=== PATIENT | male | born 1970 | race Hispanic/Latino ===

== ENCOUNTER → 2016-09-28 | Outpatient (REF) | payer OTHER ==
[2016-09-28 13:03] LABS: MEAN CORPUSCULAR HEMOGLOBIN 29.5 pg (27.0-33.0); MEAN CORPUSCULAR HGB CONC 34.4 g/dl (32.0-36.5); MEAN CORPUSCULAR VOLUME 85.7 fl (80.0-96.0); RED CELL DISTRIBUTION WIDTH 12.8 % (11.5-14.5); VITAMIN B12 LEVEL 474 PG/ML (247-911); WHITE BLOOD COUNT 5.9 K/mm3 (4.0-10.0)
[2016-09-28 13:04] LABS: ALBUMIN 4.1 GM/DL (3.2-5.2); ALBUMIN/GLOBULIN RATIO 1.32 (1.00-1.93); ALKALINE PHOSPHATASE 88 U/L (45-117); ALT/SGPT 43 U/L (12-78); ANION GAP 9 MEQ/L (8-16); AST/SGOT 14 U/L (15-37); BILIRUBIN,TOTAL 0.4 MG/DL (0.2-1.0); BLOOD UREA NITROGEN 14 MG/DL (7-18); CALCIUM LEVEL 8.9 MG/DL (8.5-10.1); CARBON DIOXIDE LEVEL 27 MEQ/L (21-32); CHLORIDE LEVEL 108 MEQ/L (98-107); CHOLESTEROL LEVEL 181 MG/DL (<200); CREATININE FOR GFR 1.09 MG/DL (0.70-1.30); FOLATE 11.1 NG/ML (>5.4); FREE T4 1.24 NG/DL (0.76-1.46); GLOMERULAR FILTRATION RATE > 60.0 (>60); GLUCOSE, FASTING 98 MG/DL (70-105); POTASSIUM SERUM 4.2 MEQ/L (3.5-5.1); SODIUM LEVEL 144 MEQ/L (136-145); TOTAL PROTEIN 7.2 GM/DL (6.4-8.2); TRIGLYCERIDES LEVEL 187 MG/DL (<150)
== END ==
LOC: M SFHCADAM 10:06
PROVIDERS: ATTEND Family Medicine
DX: E03.9 Hypothyroidism, unspecified (principal); F42.9 Obsessive-compulsive disorder, unspecified; E74.9 Disorder of carbohydrate metabolism, unspecified; N52.9 Male erectile dysfunction, unspecified; E29.1 Testicular hypofunction; G47.33 Obstructive sleep apnea (adult) (pediatric); F32.9 Major depressive disorder, single episode, unspecified

== ENCOUNTER → 2016-10-24 | Outpatient (CLI) | payer OTHER | LOC: M WUC 14:25 | PROVIDERS: ATTEND Physician Assistant | DX: M10.9 Gout, unspecified (principal) ==

== ENCOUNTER → 2016-11-05 | Outpatient (CLI) | payer OTHER | LOC: M LAB 07:44 | PROVIDERS: ATTEND Family Medicine | DX: Z12.5 Encounter for screening for malignant neoplasm of prostate (principal); E29.1 Testicular hypofunction | CPT/HCPCS: 36415; 84403; G0103 ==

== ENCOUNTER → 2016-12-30 | Outpatient (CLI) | payer OTHER ==
[2016-12-30 07:51] LABS: MEAN CORPUSCULAR HEMOGLOBIN 28.4 pg (27.0-33.0); MEAN CORPUSCULAR HGB CONC 32.9 g/dl (32.0-36.5); MEAN CORPUSCULAR VOLUME 86.3 fl (80.0-96.0); RED CELL DISTRIBUTION WIDTH 13.4 % (11.5-14.5); WHITE BLOOD COUNT 6.3 K/mm3 (4.0-10.0)
[2016-12-30 08:12] LABS: ALBUMIN 3.7 GM/DL (3.2-5.2); ALBUMIN/GLOBULIN RATIO 1.28 (1.00-1.93); ALKALINE PHOSPHATASE 76 U/L (45-117); ALT/SGPT 43 U/L (12-78); ANION GAP 6 MEQ/L (8-16); AST/SGOT 14 U/L (15-37); BILIRUBIN,TOTAL 0.4 MG/DL (0.2-1.0); BLOOD UREA NITROGEN 12 MG/DL (7-18); CALCIUM LEVEL 8.1 MG/DL (8.5-10.1); CARBON DIOXIDE LEVEL 27 MEQ/L (21-32); CHLORIDE LEVEL 109 MEQ/L (98-107); GLOMERULAR FILTRATION RATE > 60.0 (>60); GLUCOSE, FASTING 120 MG/DL (70-105); SODIUM LEVEL 142 MEQ/L (136-145); TOTAL PROTEIN 6.6 GM/DL (6.4-8.2)
== END ==
LOC: M LAB 07:08
PROVIDERS: ATTEND Family Medicine
DX: E29.1 Testicular hypofunction (principal); E55.9 Vitamin D deficiency, unspecified

== ENCOUNTER 2017-06-13 18:00 | Emergency (ER) | payer OTHER ==
[~2017-06-13] VITALS: Ht 188 cm; Wt 136.4 kg
[2017-06-13] MEDS ORDERED: LEVO200T4 (18:13)
[2017-06-13] MEDS ORDERED: VITA1CAP40 (18:13)
[2017-06-13] MEDS ORDERED: CIAL5TAB (18:13)
[2017-06-13] MEDS ORDERED: BUPR200T (18:13)
[2017-06-13] MEDS ORDERED: ANDR1.62 (18:13)
--- NOTE | 2017-06-13 21:10 | REPUSA ---
CT of the orbits without contrast Clinical history: Pain, injury. Technique: Multiple axial CT images were obtained through the orbits and paranasal sinuses utilizing 3 mm axial slices without administration of contrast. Coronal and sagittal reconstructions were also obtained. Findings: The visualized paranasal sinuses are clear. The osteomeatal complexes are patent bilaterall y. The nasal septum is midline. The visualized mastoid air cells are clear. The osseous structures do not demonstrate any acute abnormalities. The superficial soft tissues are within normal limits. Impression: Unremarkable CT examination of the orbits.
--- NOTE | 2017-06-13 21:10 | REPUSA ---
CT of the head Clinical history: trauma. Technique: Multiple axial CT images were obtained through the head without administration of contrast . Findings: The ventricles and sulci are symmetric bilaterally. There is no evidence of acute hemorrhag e or infarct. There is no midline shift, mass effect, or extra-axial fluid collection. The osseous st ructures are unremarkable. The visualized paranasal sinuses and mastoid air cells are clear. Impression: Negative study.
[2017-06-13 21:37] VITALS: BP 157/100
== END 2017-06-13 21:39 | disposition home or self-care (01) ==
LOC: M ED 18:00
DX: S80.01XA Contusion of right knee, initial encounter (principal); S05.11XA Contusion of eyeball and orbital tissues, right eye, initial encounter; S43.401A Unspecified sprain of right shoulder joint, initial encounter; W01.198A Fall on same level from slipping, tripping and stumbling with subsequent striking against other object, initial encounter; Y92.019 Unspecified place in single-family (private) house as the place of occurrence of the external cause; Y93.89 Activity, other specified; Y99.8 Other external cause status; G47.30 Sleep apnea, unspecified; E03.9 Hypothyroidism, unspecified; Z79.899 Other long term (current) drug therapy

== ENCOUNTER 2017-08-09 15:04 | Outpatient (RCR) | payer OTHER ==
[~2017-08-09 15:04] MED LIST: ANDR1.62; BUPR200T; CIAL5TAB; LEVO200T4; VITA1CAP40
== END 2017-08-11 ==
LOC: M PT 15:04
PROVIDERS: ATTEND Physician Assistant Medical
DX: Z51.89 Encounter for other specified aftercare (principal); R41.3 Other amnesia; R47.81 Slurred speech; R47.89 Other speech disturbances; M54.2 Cervicalgia
CPT/HCPCS: 92507; 96125; 97010; 97110; 97140; 97162; 97165; G9162; G9163

== ENCOUNTER → 2017-08-27 | Outpatient (CLI) | payer OTHER ==
[2017-08-27 08:53] LABS: MEAN CORPUSCULAR HGB CONC 33.2 g/dl (32.0-36.5); MEAN CORPUSCULAR VOLUME 84.4 fl (80.0-96.0); PLATELET COUNT, AUTOMATED 165 10^3/uL (150-450); RED CELL DISTRIBUTION WIDTH 13.1 % (11.5-14.5); WHITE BLOOD COUNT 6.1 10^3/uL (4.0-10.0)
[2017-08-27 09:41] LABS: ALBUMIN/GLOBULIN RATIO 1.25 (1.00-1.93); ALKALINE PHOSPHATASE 75 U/L (45-117); ALT/SGPT 39 U/L (12-78); ANION GAP 5 MEQ/L (8-16); AST/SGOT 14 U/L (7-37); BILIRUBIN,TOTAL 0.5 MG/DL (0.2-1.0); BLOOD UREA NITROGEN 13 MG/DL (7-18); CALCIUM LEVEL 8.8 MG/DL (8.5-10.1); CARBON DIOXIDE LEVEL 27 MEQ/L (21-32); CHLORIDE LEVEL 109 MEQ/L (98-107); CHOLESTEROL LEVEL 155 MG/DL (<200); FREE T4 1.29 NG/DL (0.76-1.46); GLOMERULAR FILTRATION RATE > 60.0 (>60); GLUCOSE, FASTING 103 MG/DL (70-105); POTASSIUM SERUM 4.8 MEQ/L (3.5-5.1); SODIUM LEVEL 141 MEQ/L (136-145); TOTAL PROTEIN 7.2 GM/DL (6.4-8.2); TRIGLYCERIDES LEVEL 107 MG/DL (<150)
== END ==
LOC: M LAB 08:11
PROVIDERS: ATTEND Family Medicine
DX: E29.1 Testicular hypofunction (principal)

== ENCOUNTER → 2018-02-27 | Outpatient (CLI) | payer OTHER ==
[2018-02-27 07:45] LABS: HEMATOCRIT 44.2 % (42.0-52.0); HEMOGLOBIN 15.1 g/dl (13.5-17.5); MEAN CORPUSCULAR HEMOGLOBIN 28.9 pg (27.0-33.0); MEAN CORPUSCULAR HGB CONC 34.2 g/dl (32.0-36.5); MEAN CORPUSCULAR VOLUME 84.7 fl (80.0-96.0); PLATELET COUNT, AUTOMATED 160 10^3/uL (150-450); RED BLOOD COUNT 5.22 10^6/uL (4.30-6.10); RED CELL DISTRIBUTION WIDTH 12.6 % (11.5-14.5); WHITE BLOOD COUNT 6.1 10^3/uL (4.0-10.0)
[2018-02-27 08:24] LABS: ALBUMIN 3.7 GM/DL (3.2-5.2); ALBUMIN/GLOBULIN RATIO 1.16 (1.00-1.93); ALKALINE PHOSPHATASE 75 U/L (45-117); ALT/SGPT 34 U/L (12-78); ANION GAP 8 MEQ/L (8-16); AST/SGOT 14 U/L (7-37); BILIRUBIN,TOTAL 0.4 MG/DL (0.2-1.0); BLOOD UREA NITROGEN 20 MG/DL (7-18); CALCIUM LEVEL 8.4 MG/DL (8.5-10.1); CARBON DIOXIDE LEVEL 24 MEQ/L (21-32); CHLORIDE LEVEL 110 MEQ/L (98-107); CHOLESTEROL LEVEL 140 MG/DL (<200); CHOLESTEROL RISK RATIO 3.684 (<5); CREATININE FOR GFR 1.05 MG/DL (0.70-1.30); GLOMERULAR FILTRATION RATE > 60.0 (>60); GLUCOSE, FASTING 102 MG/DL (70-100); HDL CHOLESTEROL 38 MG/DL (>40); NON-HDL-C 102 MG/DL; POTASSIUM SERUM 4.3 MEQ/L (3.5-5.1); SODIUM LEVEL 142 MEQ/L (136-145); TOTAL PROTEIN 6.9 GM/DL (6.4-8.2); TRIGLYCERIDES LEVEL 100 MG/DL (<150)
[2018-02-27 09:54] LABS: TESTOSTERONE 362 NG/DL (241-827)
[2018-02-27 11:31] LABS: ESTIMATED AVERAGE GLUCOSE 128 MG/DL (60-110); HEMOGLOBIN A1c 6.1 %
== END ==
LOC: M LAB 07:10
DX: G47.33 Obstructive sleep apnea (adult) (pediatric) (principal); E74.9 Disorder of carbohydrate metabolism, unspecified; I10 Essential (primary) hypertension; E29.1 Testicular hypofunction; Z12.5 Encounter for screening for malignant neoplasm of prostate
CPT/HCPCS: 84403

== ENCOUNTER → 2018-06-07 | Outpatient (CLI) | payer OTHER | LOC: M RAD 14:56 | DX: N43.3 Hydrocele, unspecified (principal); N50.3 Cyst of epididymis; N50.819 Testicular pain, unspecified | CPT/HCPCS: 76870 ==

== ENCOUNTER 2018-06-15 13:14 | Emergency (ER) | payer OTHER ==
[2018-06-15 14:21] LABS: BASO % 0.5 % (0.0-1.0); EOS # 0.1 10^3/uL (0.0-0.50); EOS % 1.4 % (0.0-3.0); HEMATOCRIT 50.2 % (42.0-52.0); HEMOGLOBIN 16.9 g/dl (13.5-17.5); IMMATURE GRANULOCYTE % 0.5 % (0-3.0); LYMPH # 1.8 10^3/uL (1.5-4.5); LYMPH % 21.9 % (24.0-44.0); MEAN CORPUSCULAR HEMOGLOBIN 28.6 pg (27.0-33.0); MEAN CORPUSCULAR HGB CONC 33.7 g/dl (32.0-36.5); MEAN CORPUSCULAR VOLUME 85.1 fl (80.0-96.0); MONO # 0.6 10^3/uL (0.0-0.8); NEUTROPHILS # 5.8 10^3/uL (1.8-7.7); NEUTROPHILS % 68.7 % (36.0-66.0); PLATELET COUNT, AUTOMATED 172 10^3/uL (150-450); WHITE BLOOD COUNT 8.4 10^3/uL (4.0-10.0)
[2018-06-15 14:35] LABS: ALBUMIN 4.5 GM/DL (3.2-5.2); ALBUMIN/GLOBULIN RATIO 1.32 (1.00-1.93); ALKALINE PHOSPHATASE 67 U/L (45-117); ALT/SGPT 46 U/L (12-78); ANION GAP 8 MEQ/L (8-16); AST/SGOT 17 U/L (7-37); BILIRUBIN,DIRECT 0.2 MG/DL (0.0-0.2); BILIRUBIN,TOTAL 0.6 MG/DL (0.2-1.0); BLOOD UREA NITROGEN 19 MG/DL (7-18); CALCIUM LEVEL 9.5 MG/DL (8.5-10.1); CARBON DIOXIDE LEVEL 29 MEQ/L (21-32); CHLORIDE LEVEL 106 MEQ/L (98-107); CREATININE FOR GFR 1.32 MG/DL (0.70-1.30); GLOMERULAR FILTRATION RATE > 60.0 (>60); GLUCOSE, FASTING 81 MG/DL (70-100); LIPASE 190 U/L (73-393); POTASSIUM SERUM 4.4 MEQ/L (3.5-5.1); SODIUM LEVEL 143 MEQ/L (136-145); TOTAL PROTEIN 7.9 GM/DL (6.4-8.2)
[2018-06-15] MEDS ORDERED: ISOVUE-370 76% 100ML VIAL (Q9967) As Ordered (14:47)
== END 2018-06-15 16:04 | disposition home or self-care (01) ==
LOC: M ED 13:14
DX: K42.9 Umbilical hernia without obstruction or gangrene (principal); I10 Essential (primary) hypertension; F33.9 Major depressive disorder, recurrent, unspecified; F42.9 Obsessive-compulsive disorder, unspecified; Z79.899 Other long term (current) drug therapy
CPT/HCPCS: Q9967

== ENCOUNTER → 2018-08-07 | Outpatient (CLI) | payer OTHER | LOC: M EKG 15:31 | DX: G47.30 Sleep apnea, unspecified (principal) | CPT/HCPCS: 93005 ==

== ENCOUNTER 2018-08-11 06:07 | Day surgery (SDC) | payer OTHER ==
[2018-08-11] MEDS: HEPARIN SOD (PORCINE) 5000 UNITS/ML VIAL SQ (06:00)
[~2018-08-11 06:07] MED LIST changes: -ANDR1.62; -BUPR200T; -CIAL5TAB; -LEVO200T4; +LR 1,000 ML IV; -VITA1CAP40
[2018-08-11] MEDS ORDERED: PROPOFOL 200 MG/20 ML VIAL As Ordered (07:14)
[2018-08-11] MEDS ORDERED: LIDOCAINE 2% INJ 100 MG/5 ML SDV (FOR ANES.) As Ordered (07:14)
[2018-08-11] MEDS ORDERED: dexameTHASONE 4 MG/ML 1ML VIAL (J1100) As Ordered (07:14)
[2018-08-11] MEDS ORDERED: ROCURONIUM BROMIDE 50 MG/5 ML VIAL As Ordered (07:14)
[2018-08-11] MEDS ORDERED: ONDANSETRON 4MG/2ML VIAL (J2405) As Ordered ×2 (07:14→08:50)
[2018-08-11] MEDS ORDERED: fentaNYL 250 MCG/5 ML INJECTION (J3010) As Ordered (07:16)
[2018-08-11] MEDS ORDERED: MIDAZOLAM INJ 2 MG/2 ML VIAL (J2250) As Ordered (07:17)
[2018-08-11] MEDS ORDERED: PHENYLephrine HCL 500 MCG/5 ML (100MCG/ML) SYRINGE (J2370) As Ordered (08:11)
[2018-08-11] MEDS ORDERED: ePHEDrine SULFATE 25 MG/5 ML(5MG/ML) SYRINGE As Ordered (08:11)
[2018-08-11] MEDS ORDERED: NEOSTIGMINE 10 MG/10 ML VIAL (J2710) As Ordered (08:29)
[2018-08-11] MEDS ORDERED: GLYCOPYRROLATE INJ 0.2 MG/ML 2 ML VIAL As Ordered (08:29)
[2018-08-11] MEDS ORDERED: HYDROmorphone HCL 2 MG/ML 1ML VIAL (J1170) As Ordered (08:29)
[2018-08-11] MEDS: BUPIVACAINE HCL 0.25% 30 ML VIAL As Ordered (09:00)
[2018-08-11] MEDS: LIDOCAINE 1% SDV INJ 30 ML VIAL As Ordered (09:00)
[2018-08-11] MEDS: LR 1,000 ML IV (09:12)
[2018-08-11] MEDS ORDERED: METOCLOPRAMIDE INJ 10MG/2ML VIAL (J2765) IV (09:30)
[2018-08-11] MEDS: MEPERIDINE INJ 25 MG/ML VIAL (J2175) IV ×2 (09:30→09:35)
[2018-08-11] MEDS ORDERED: NORCO, ANEXSIA 5/325MG TABLET (HYDROcodone/ACETAMINOPHEN) PO (09:30)
[2018-08-11] MEDS ORDERED: KETOROLAC 30 MG/ML VIAL (J1885) IV (09:30)
[2018-08-11] MEDS: PERCOCET 5MG/325MG TAB PO ×2 (09:31→10:01)
[2018-08-11] MEDS: KETOROLAC 30 MG/ML VIAL (J1885) IV (09:32)
[2018-08-11] MEDS: ONDANSETRON 4MG/2ML VIAL (J2405) IV (09:33)
[2018-08-11] MEDS: fentaNYL 100 MCG/2 ML INJECTION (J3010) IV ×4 (10:00→10:15)
[2018-08-11] MEDS: NORCO, ANEXSIA 5/325MG TABLET (HYDROcodone/ACETAMINOPHEN) PO (14:06)
== END 2018-08-11 14:35 | disposition home or self-care (01) ==
LOC: M SDC 06:07
DX: K42.9 Umbilical hernia without obstruction or gangrene (principal); I10 Essential (primary) hypertension; E03.9 Hypothyroidism, unspecified; G47.30 Sleep apnea, unspecified; Z79.899 Other long term (current) drug therapy
CPT/HCPCS: 49652

== ENCOUNTER → 2018-09-30 | Outpatient (CLI) | payer OTHER ==
[~2018-09-30] MED LIST changes: +ANDR1.62 TOP; +BUPR200T PO; +CIAL5TAB PO; +CIPR500T3; +IBUP200C25 PO; +LEVO200T4 PO; +LISI10TA4 PO; -LR 1,000 ML IV; +VITA50005 PO; +VITATAB11 PO
[2018-09-30 09:55] LABS: HEMATOCRIT 48.7 % (42.0-52.0); HEMOGLOBIN 16.5 g/dl (13.5-17.5); MEAN CORPUSCULAR HGB CONC 33.9 g/dl (32.0-36.5); MEAN CORPUSCULAR VOLUME 85.7 fl (80.0-96.0); PLATELET COUNT, AUTOMATED 168 10^3/uL (150-450); RED BLOOD COUNT 5.68 10^6/uL (4.30-6.10); WHITE BLOOD COUNT 5.9 10^3/uL (4.0-10.0)
[2018-09-30 10:30] LABS: ALBUMIN 4.2 GM/DL (3.2-5.2); ALT/SGPT 38 U/L (12-78); BILIRUBIN,TOTAL 0.6 MG/DL (0.2-1.0); BLOOD UREA NITROGEN 15 MG/DL (7-18); CALCIUM LEVEL 8.7 MG/DL (8.5-10.1); CARBON DIOXIDE LEVEL 27 MEQ/L (21-32); CHLORIDE LEVEL 106 MEQ/L (98-107); CREATININE FOR GFR 1.14 MG/DL (0.70-1.30); FREE T4 1.49 NG/DL (0.76-1.46); GLOMERULAR FILTRATION RATE > 60.0 (>60); GLUCOSE, FASTING 105 MG/DL (70-100); POTASSIUM SERUM 4.6 MEQ/L (3.5-5.1); SODIUM LEVEL 139 MEQ/L (136-145); THYROID STIMULATING HORMONE 0.988 uIU/ML (0.358-3.740); TOTAL PROTEIN 7.3 GM/DL (6.4-8.2)
[2018-10-02 11:23] LABS: TESTOSTERONE 451 NG/DL (241-827); TOTAL 25(OH) VITAMIN D 37.1 NG/ML (30.0-100.0)
== END ==
LOC: M LAB 09:00
PROVIDERS: ATTEND Family Medicine
DX: E03.9 Hypothyroidism, unspecified (principal); E55.9 Vitamin D deficiency, unspecified; I10 Essential (primary) hypertension; F32.9 Major depressive disorder, single episode, unspecified; E29.1 Testicular hypofunction

== ENCOUNTER → 2019-04-26 | Outpatient (CLI) | payer OTHER ==
[2019-04-26 11:22] LABS: BLOOD UREA NITROGEN 14 MG/DL (7-18); CREATININE FOR GFR 1.01 MG/DL (0.70-1.30); GLOMERULAR FILTRATION RATE > 60.0 (>60); GLUCOSE, FASTING 110 MG/DL (70-100); SODIUM LEVEL 142 MEQ/L (136-145)
[2019-04-26 11:23] LABS: ALT/SGPT 35 U/L (12-78); BILIRUBIN,TOTAL 0.3 MG/DL (0.2-1.0); CALCIUM LEVEL 8.2 MG/DL (8.5-10.1); CARBON DIOXIDE LEVEL 26 MEQ/L (21-32); CHLORIDE LEVEL 109 MEQ/L (98-107); CHOLESTEROL LEVEL 150 MG/DL (<200); HDL CHOLESTEROL 40 MG/DL (>40); NON-HDL-C 110 MG/DL; POTASSIUM SERUM 4.6 MEQ/L (3.5-5.1); TRIGLYCERIDES LEVEL 115 MG/DL (<150)
[2019-04-26 11:24] LABS: ALBUMIN 3.8 GM/DL (3.2-5.2); FREE T4 1.06 NG/DL (0.76-1.46); TOTAL PROTEIN 6.6 GM/DL (6.4-8.2)
[2019-04-26 12:24] LABS: TESTOSTERONE 460 NG/DL (241-827)
== END ==
LOC: M LAB 07:23
PROVIDERS: ATTEND Family Medicine
DX: E03.9 Hypothyroidism, unspecified (principal)

== ENCOUNTER → 2019-07-20 | Outpatient (CLI) | payer OTHER ==
--- NOTE | 2019-07-20 12:09 | REP ---
STERNUM SERIES: Two views. HISTORY: [place] a bump in the manubrial area of the sternum. FINDINGS: There are large osteophytes extending anteriorly from the manubrial sternal articulation visible on lateral radiograph. These measure approximately 14 mm in anteroposterior span. No bony destructive lesion is seen. No fracture is noted. Costal cartilage calcification is visible. IMPRESSION: Fairly prominent spurs at the manubrial sternal articulation anteriorly. Electronically Signed by Josh Méndez MD 07/20/2019 01:54 P
== END ==
LOC: M ADAMS 08:49
PROVIDERS: ATTEND Physician Assistant
DX: G47.33 Obstructive sleep apnea (adult) (pediatric) (principal)

== ENCOUNTER → 2019-07-20 | Outpatient (REF) | payer OTHER ==
[2019-07-20 14:05] LABS: BASO % 0.7 % (0.0-1.0); EOS # 0.2 10^3/uL (0.0-0.5); EOS % 2.6 % (0.0-3.0); HEMOGLOBIN 15.6 g/dl (13.5-17.5); LYMPH # 1.5 10^3/uL (1.5-5.0); LYMPH % 26.9 % (24.0-44.0); MEAN CORPUSCULAR HEMOGLOBIN 28.5 pg (27.0-33.0); MEAN CORPUSCULAR HGB CONC 32.5 g/dl (32.0-36.5); MEAN CORPUSCULAR VOLUME 87.6 fl (80.0-96.0); MONO # 0.4 10^3/uL (0.0-0.8); MONO % 7.7 % (0.0-5.0); NEUTROPHILS # 3.5 10^3/uL (1.5-8.5); NEUTROPHILS % 61.6 % (36.0-66.0); PLATELET COUNT, AUTOMATED 163 10^3/uL (150-450); RED BLOOD COUNT 5.48 10^6/uL (4.30-6.10); WHITE BLOOD COUNT 5.7 10^3/uL (4.0-10.0)
[2019-07-20 14:35] LABS: ALBUMIN 4.1 GM/DL (3.2-5.2); ALT/SGPT 39 U/L (12-78); BILIRUBIN,TOTAL 0.7 MG/DL (0.2-1.0); BLOOD UREA NITROGEN 13 MG/DL (7-18); CALCIUM LEVEL 8.7 MG/DL (8.5-10.1); CARBON DIOXIDE LEVEL 28 MEQ/L (21-32); CHLORIDE LEVEL 108 MEQ/L (98-107); CREATININE FOR GFR 1.11 MG/DL (0.70-1.30); FOLATE 14.2 NG/ML; FREE T4 1.38 NG/DL (0.76-1.46); GLOMERULAR FILTRATION RATE > 60.0 (>60); GLUCOSE, FASTING 98 MG/DL (70-100); POTASSIUM SERUM 4.3 MEQ/L (3.5-5.1); SODIUM LEVEL 142 MEQ/L (136-145); THYROID STIMULATING HORMONE 0.842 uIU/ML (0.358-3.740); TOTAL PROTEIN 7.2 GM/DL (6.4-8.2); VITAMIN B12 LEVEL 394 PG/ML
[2019-07-22 00:06] LABS: Lyme Disease IgG/IgM Antibodie <0.91 ISR (0.00-0.90); Lyme Disease IgM Ab Quantitati <0.80 index (0.00-0.79)
== END ==
LOC: M SFHCADAM 08:33
PROVIDERS: ATTEND Physician Assistant
DX: R42 Dizziness and giddiness (principal); M95.4 Acquired deformity of chest and rib; Z87.828 Personal history of other (healed) physical injury and trauma; I10 Essential (primary) hypertension

== ENCOUNTER → 2019-08-01 | Outpatient (CLI) | payer OTHER ==
--- NOTE | 2019-08-01 17:50 | REP ---
ULTRASOUND ANGIO CHEST WALL: Real-time sonographic evaluation of the anterior chest wall was performed in the midline at the site of a palpable abnormality. At the mid sternal level, at the site of the palpable lump. There is a heterogenous hypoechoic area which appears solid. There is increased echogenicity in its center. It measures 1.1 x 1.2 x 0.8 cm. Etiology is uncertain. I suspect this is related to the sternum. Further evaluation may be made with CT with and without IV contrast. Electronically Signed by Negro Nathan MD 08/02/2019 11:28 A
== END ==
LOC: M RAD 16:17
PROVIDERS: ATTEND Physician Assistant
DX: M95.4 Acquired deformity of chest and rib (principal)

== ENCOUNTER → 2019-08-15 | Outpatient (CLI) | payer OTHER ==
[~2019-08-15] MED LIST changes: +ISOVUE-370 76% 100ML VIAL (Q9967) As Ordered ONE
--- NOTE | 2019-08-15 09:17 | REP ---
Clinical: Sternal deformity. Technique: Axial contrast enhanced images from the thoracic inlet to the lung bases using 75 ml Isovue 370 intravenous contrast material with coronal and sagittal re-formations. Findings: Sagittal re-formations best demonstrate a large anterior protruding osteophytes/spur at the sternomanubrial articulation consistent with the patient's history of "bump". The sternum along with associated articulations are otherwise normal and the overlying soft tissues and musculature are intact and normal. The bilateral lung barnard are well-aerated and clear. No consolidation, nodule or mass. No effusion. No pneumothorax. Tracheobronchial tree is patent. No axillary, hilar, or mediastinal adenopathy. The mediastinum demonstrates normal thoracic aorta, pulmonary vasculature and heart/pericardium. Further evaluation of the surrounding osseous structures are intact and relatively normal. Limited upper abdomen demonstrates normal bilateral adrenal glands along with evidence for hepatic steatosis. Impression: 1. Patient's symptoms are related to a large anterior protruding osteophyte at the sternomanubrial articulation. No further significant pathology is appreciated. 2. No acute mediastinal or pleuroparenchymal process. Electronically Signed by Delfin Kenney MD 08/15/2019 09:08 A
== END ==
LOC: M RAD 08:23
PROVIDERS: ATTEND Physician Assistant
DX: M95.4 Acquired deformity of chest and rib (principal)

== ENCOUNTER 2019-09-09 09:18 | Emergency (ER) | payer OTHER ==
[~2019-09-09] VITALS: Ht 188 cm; Wt 142.7 kg
[~2019-09-09 09:18] MED LIST changes: -ISOVUE-370 76% 100ML VIAL (Q9967) As Ordered ONE
[2019-09-09 09:31] VITALS: BP 140/90
[2019-09-09] MEDS ORDERED: QC A650T3 PO (10:12)
--- NOTE | 2019-09-09 15:52 | ECGEPIP ---
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
== END 2019-09-09 10:28 | disposition home or self-care (01) ==
LOC: M ED 09:18
DX: M19.90 Unspecified osteoarthritis, unspecified site (principal); I10 Essential (primary) hypertension; F42.9 Obsessive-compulsive disorder, unspecified; E03.9 Hypothyroidism, unspecified; G47.33 Obstructive sleep apnea (adult) (pediatric); Z86.718 Personal history of other venous thrombosis and embolism; Z79.899 Other long term (current) drug therapy; Z79.890 Hormone replacement therapy; Z87.891 Personal history of nicotine dependence

== ENCOUNTER → 2020-05-12 | Outpatient (CLI) | payer OTHER ==
[~2020-05-12] MED LIST changes: +QC A650T3 PO
--- NOTE | 2020-05-12 10:23 | REPVR ---
PROCEDURE INFORMATION: Exam: US Duplex Left Lower Extremity Veins, Limited Exam date and time: 05/12/2020 9:52 AM Age: 50 years old Clinical indication: Pain; Leg, lower; Left; Additional info: Left lower leg and knee pain TECHNIQUE: Imaging protocol: Real-time Duplex ultrasound of the Left Lower Extremity with 2-D zamora scale, color Doppler flow and spectral waveform analysis with image documentation. Limited exam focused on the left lower extremity veins. COMPARISON: No relevant prior studies available. FINDINGS: Left deep veins: Unremarkable. The common femoral, femoral, proximal profunda femoral and popliteal veins are patent without thrombus. Normal Doppler waveforms. Normal compressibility and/or augmentation response. Left superficial veins: Unremarkable. Saphenofemoral junction is patent without thrombus. Soft tissues: Unremarkable. IMPRESSION: No deep venous thrombus demonstrated in the left lower extremity. COMMENTS: Note the images described the study as being performed on the right side, although the title of the images was reportedly correctly the left side. Electronically signed by: Rosendo Phillip On 05/12/2020 10:23:10 AM
== END ==
LOC: M RAD 09:19
PROVIDERS: ATTEND Physician Assistant
DX: M79.662 Pain in left lower leg (principal); M25.562 Pain in left knee

== ENCOUNTER → 2020-08-21 | Outpatient (CLI) | payer OTHER ==
--- NOTE | 2020-08-21 22:50 | ECGEPIP ---
[facility] Test Date: 2020-08-21 Pat Name: SEPIDEH KEN Department: Room: - Gender: Male Machine Tender: MARY : 1970 Requested By: Lindsay Abarca Order Number: [id number] Reading MD: Tian Ramos Measurements Intervals [place] Rate: 77 P: 46 MN: 165 QRS: 5 QRSD: 98 T: 30 QT: 360 QTc: 408 Interpretive Statements SINUS RHYTHM Within normal limits. No significant change compared with 09/09/2019. Electronically Signed on 08-21-2020 22:49:55 EST by iTan Ramos
== END ==
LOC: M EKG 15:18
PROVIDERS: ATTEND Orthopaedic Surgery
DX: G56.00 Carpal tunnel syndrome, unspecified upper limb (principal)

== ENCOUNTER → 2020-10-18 | Outpatient (CLI) | payer OTHER ==
[~2020-10-18] MED LIST changes: -BUPR200T PO; +BUPR200T2 PO
[2020-10-18 09:02] LABS: HEMATOCRIT 45.8 % (42.0-52.0); HEMOGLOBIN 14.9 g/dl (13.5-17.5); MEAN CORPUSCULAR HEMOGLOBIN 28.4 pg (27.0-33.0); MEAN CORPUSCULAR HGB CONC 32.5 g/dl (32.0-36.5); MEAN CORPUSCULAR VOLUME 87.4 fl (80.0-96.0); PLATELET COUNT, AUTOMATED 163 10^3/uL (150-450); RED BLOOD COUNT 5.24 10^6/uL (4.30-6.10); WHITE BLOOD COUNT 4.7 10^3/uL (4.0-10.0)
[2020-10-18 09:37] LABS: ALBUMIN 4.1 GM/DL (3.2-5.2); ALT/SGPT 35 U/L (12-78); BILIRUBIN,TOTAL 0.6 MG/DL (0.2-1.0); BLOOD UREA NITROGEN 17 MG/DL (7-18); CALCIUM LEVEL 8.9 MG/DL (8.5-10.1); CARBON DIOXIDE LEVEL 28 MEQ/L (21-32); CHLORIDE LEVEL 108 MEQ/L (98-107); CHOLESTEROL LEVEL 147 MG/DL (<200); CHOLESTEROL RISK RATIO 3.127 (<5); CREATININE FOR GFR 1.12 MG/DL (0.70-1.30); FREE T4 1.21 NG/DL (0.76-1.46); GLOMERULAR FILTRATION RATE > 60.0 (>56); GLUCOSE, FASTING 98 MG/DL (70-100); HDL CHOLESTEROL 47 MG/DL (>40); LDL CHOLESTEROL 88 MG/DL (<100); NON-HDL-C 100 MG/DL; POTASSIUM SERUM 4.7 MEQ/L (3.5-5.1); SODIUM LEVEL 141 MEQ/L (136-145); THYROID STIMULATING HORMONE 0.965 uIU/ML (0.358-3.740); TOTAL PROTEIN 7.1 GM/DL (6.4-8.2); TRIGLYCERIDES LEVEL 61 MG/DL (<150)
[2020-10-18 09:41] LABS: HEMOGLOBIN A1c 5.5 %
[2020-10-20 10:48] LABS: TESTOSTERONE 375 NG/DL (241-827)
== END ==
LOC: M LAB 08:04
PROVIDERS: ATTEND Family Medicine
DX: E03.9 Hypothyroidism, unspecified (principal); E74.9 Disorder of carbohydrate metabolism, unspecified; G47.33 Obstructive sleep apnea (adult) (pediatric); F32.9 Major depressive disorder, single episode, unspecified; E29.1 Testicular hypofunction

== ENCOUNTER → 2021-03-03 | Outpatient (CLI) | payer OTHER ==
[~2021-03-03] MED LIST changes: +LISI10TA22 PO; -LISI10TA4 PO
--- NOTE | 2021-03-03 16:53 | REP ---
INDICATION: SPRAIN OF MEDIAL COLLATERAL LIGAMENT OF RIGHT KNEE, INIT COMPARISON: None TECHNIQUE: Five views FINDINGS: There is mild tricompartmental marginal osteophytosis with mild patellofemoral joint space narrowing. Calcifications are seen in both medial and particularly lateral compartments. There is no acute fracture, dislocation, or subluxation. IMPRESSION: Chronic changes as described above. Meniscal calcifications likely secondary to calcified meniscal degenerative changes or calcium pyrophosphate deposition disorder. <Electronically signed by Dale Posey > 03/03/21 [id number]
== END ==
LOC: M RAD 16:29
PROVIDERS: ATTEND Physician Assistant
DX: S83.411A Sprain of medial collateral ligament of right knee, initial encounter (principal)

== ENCOUNTER → 2021-05-06 | Outpatient (CLI) | payer OTHER ==
[2021-05-06 09:40] LABS: FREE T4 1.08 NG/DL (0.76-1.46); THYROID STIMULATING HORMONE 2.4 uIU/ML (0.358-3.740)
[2021-05-07 18:07] LABS: TESTOSTERONE FREE (DIRECT) 8.4 pg/mL (7.2-24.0)
== END ==
LOC: M LAB 08:07
PROVIDERS: ATTEND Family Medicine
DX: E03.9 Hypothyroidism, unspecified (principal)

== ENCOUNTER 2021-08-09 12:10 | Emergency (ER) | payer OTHER ==
[~2021-08-09] VITALS: Ht 188 cm; Wt 127.3 kg
[2021-08-09] MEDS ORDERED: TADA20TA (12:18)
[2021-08-09] MEDS ORDERED: LIDOCAINE 5% (LIDODERM) PATCH TD ONE (14:20)
[2021-08-09 14:31] VITALS: BP 135/82
[2021-08-10] MEDS ORDERED: **NOTE PATIENT COMMENT** MISC XX ONE (02:00)
== END 2021-08-09 14:32 | disposition home or self-care (01) ==
LOC: M ED 12:10
DX: S20.211A Contusion of right front wall of thorax, initial encounter (principal); W00.0XXA Fall on same level due to ice and snow, initial encounter; Y92.410 Unspecified street and highway as the place of occurrence of the external cause; I10 Essential (primary) hypertension; E03.9 Hypothyroidism, unspecified; Z79.899 Other long term (current) drug therapy; Z79.890 Hormone replacement therapy; Z86.718 Personal history of other venous thrombosis and embolism

== ENCOUNTER → 2021-09-03 | Outpatient (REF) | payer OTHER ==
[~2021-09-03] MED LIST changes: +TADA20TA
[2021-09-03 12:43] LABS: BASO # 0.1 10^3/uL (0.0-0.2); BASO % 0.6 % (0.0-1.0); EOS # 0.3 10^3/uL (0.0-0.5); EOS % 3.4 % (0.0-3.0); HEMOGLOBIN 15.4 g/dl (13.5-17.5); LYMPH # 1.9 10^3/uL (1.5-5.0); LYMPH % 24.2 % (24.0-44.0); MEAN CORPUSCULAR HEMOGLOBIN 28.6 pg (27.0-33.0); MEAN CORPUSCULAR HGB CONC 32.8 g/dl (32.0-36.5); MEAN CORPUSCULAR VOLUME 87.2 fl (80.0-96.0); MONO # 0.6 10^3/uL (0.0-0.8); MONO % 7.4 % (2.0-8.0); NEUTROPHILS # 4.9 10^3/uL (1.5-8.5); NEUTROPHILS % 63.6 % (36.0-66.0); PLATELET COUNT, AUTOMATED 170 10^3/uL (150-450); RED BLOOD COUNT 5.39 10^6/uL (4.30-6.10); WHITE BLOOD COUNT 7.7 10^3/uL (4.0-10.0)
[2021-09-03 13:17] LABS: ALBUMIN 4.3 GM/DL (3.2-5.2); ALT/SGPT 38 U/L (12-78); BILIRUBIN,TOTAL 0.4 MG/DL (0.2-1.0); BLOOD UREA NITROGEN 17 MG/DL (7-18); CALCIUM LEVEL 8.9 MG/DL (8.5-10.1); CARBON DIOXIDE LEVEL 28 MEQ/L (21-32); CHLORIDE LEVEL 106 MEQ/L (98-107); CREATININE FOR GFR 1.02 MG/DL (0.70-1.30); FOLATE > 24.0 NG/ML; FREE T4 1.34 NG/DL (0.76-1.46); GLOMERULAR FILTRATION RATE > 60.0 (>56); GLUCOSE, FASTING 117 MG/DL (70-100); POTASSIUM SERUM 4.3 MEQ/L (3.5-5.1); SODIUM LEVEL 140 MEQ/L (136-145); TOTAL PROTEIN 7.5 GM/DL (6.4-8.2); VITAMIN B12 LEVEL 604 PG/ML
== END ==
LOC: M SFHCADAM 07:50
PROVIDERS: ATTEND Physician Assistant
DX: I10 Essential (primary) hypertension (principal); M79.652 Pain in left thigh; R10.11 Right upper quadrant pain; R63.5 Abnormal weight gain

== ENCOUNTER 2021-09-23 07:58 | Emergency (ER) | payer OTHER ==
[~2021-09-23] VITALS: Ht 188 cm; Wt 133.2 kg
[2021-09-23] MEDS ORDERED: ASPIRIN 81 MG CHEW TABLET PO ONE (08:30)
[2021-09-23 08:39] LABS: BASO % 0.5 % (0.0-1.0); EOS # 0.1 10^3/uL (0.0-0.5); HEMATOCRIT 48.7 % (42.0-52.0); HEMOGLOBIN 16.3 g/dl (13.5-17.5); LYMPH # 1.5 10^3/uL (1.5-5.0); LYMPH % 24.5 % (24.0-44.0); MEAN CORPUSCULAR HGB CONC 33.5 g/dl (32.0-36.5); MEAN CORPUSCULAR VOLUME 86.5 fl (80.0-96.0); MONO # 0.4 10^3/uL (0.0-0.8); MONO % 7.1 % (2.0-8.0); NEUTROPHILS # 3.9 10^3/uL (1.5-8.5); NEUTROPHILS % 65.4 % (36.0-66.0); PLATELET COUNT, AUTOMATED 184 10^3/uL (150-450); RED BLOOD COUNT 5.63 10^6/uL (4.30-6.10); WHITE BLOOD COUNT 5.9 10^3/uL (4.0-10.0)
[2021-09-23 09:01] LABS: INR 1.05; PROTHROMBIN TIME 14.1 SECONDS (12.7-14.5)
[2021-09-23 09:02] LABS: PARTIAL THROMBOPLASTIN TIME 35.4 SECONDS (25.9-37.0)
[2021-09-23 09:04] LABS: D-DIMER QUANT 320.2 ng/ml (<500)
[2021-09-23 09:19] LABS: CK-MB VALUE MASS 1.8 NG/ML (<3.6); MB/CK RELATIVE INDEX 0.7 (< OR =4)
[2021-09-23 09:20] LABS: ALBUMIN 4.3 GM/DL (3.2-5.2); ALT/SGPT 39 U/L (12-78); BILIRUBIN,DIRECT 0.2 MG/DL (0.0-0.2); BILIRUBIN,TOTAL 0.6 MG/DL (0.2-1.0); BLOOD UREA NITROGEN 19 MG/DL (7-18); CALCIUM LEVEL 9.3 MG/DL (8.5-10.1); CARBON DIOXIDE LEVEL 26 MEQ/L (21-32); CHLORIDE LEVEL 109 MEQ/L (98-107); CREATININE FOR GFR 1.27 MG/DL (0.70-1.30); GLOMERULAR FILTRATION RATE > 60.0 (>56); GLUCOSE, FASTING 115 MG/DL (70-100); LIPASE 248 U/L (73-393); NT-PRO BNP 18 PG/ML (<125); POTASSIUM SERUM 4.5 MEQ/L (3.5-5.1); SODIUM LEVEL 141 MEQ/L (136-145); TOTAL PROTEIN 7.7 GM/DL (6.4-8.2)
[2021-09-23] MEDS ORDERED: METOPROLOL TART 25 MG TABLET PO ONE (10:00)
[2021-09-23] MEDS ORDERED: METO1TAB87 PO (10:01)
[2021-09-23] MEDS ORDERED: ASPI81CH33 PO (10:07)
[2021-09-23 10:50] VITALS: BP 150/94
[2021-09-23 11:27] VITALS: BP 150/92
== END 2021-09-23 11:36 | disposition home or self-care (01) ==
LOC: M ED 07:58
DX: R00.0 Tachycardia, unspecified (principal); R00.2 Palpitations; I49.3 Ventricular premature depolarization; I10 Essential (primary) hypertension; E03.9 Hypothyroidism, unspecified; Z86.718 Personal history of other venous thrombosis and embolism; Z83.2 Family history of diseases of the blood and blood-forming organs and certain disorders involving the immune mechanism; Z79.899 Other long term (current) drug therapy

== ENCOUNTER → 2021-10-03 | Outpatient (CLI) | payer OTHER ==
[~2021-10-03] MED LIST changes: +ASPI81CH33 PO; +METO1TAB87 PO
== END ==
LOC: M LAB 08:16
PROVIDERS: ATTEND Family Medicine
DX: E29.1 Testicular hypofunction (principal)

== ENCOUNTER → 2021-10-08 | Outpatient (CLI) | payer OTHER | LOC: M EKG 12:51 | PROVIDERS: ATTEND Family Medicine | DX: R00.2 Palpitations (principal) ==

== ENCOUNTER → 2022-09-09 | Outpatient (CLI) | payer OTHER ==
[~2022-09-09] MED LIST changes: -BUPR200T2 PO; +BUPR200T41 PO
[2022-09-09 12:34] LABS: HEMATOCRIT 48.2 % (42.0-52.0); HEMOGLOBIN 15.6 g/dl (13.5-17.5); MEAN CORPUSCULAR HGB CONC 32.4 g/dl (32.0-36.5); MEAN CORPUSCULAR VOLUME 86.4 fl (80.0-96.0); PLATELET COUNT, AUTOMATED 178 10^3/uL (150-450); RED BLOOD COUNT 5.58 10^6/uL (4.30-6.10); WHITE BLOOD COUNT 7.1 10^3/uL (4.0-10.0)
[2022-09-09 12:50] LABS: ALBUMIN 4.1 G/DL (3.2-5.2); ALKALINE PHOSPHATASE 77 U/L (46-116); ALT/SGPT 34 U/L (7.0-40); AST/SGOT 19 U/L (<34); BILIRUBIN,TOTAL 0.4 MG/DL (0.3-1.2); BLOOD UREA NITROGEN 13 MG/DL (9-23); CALCIUM LEVEL 9.1 MG/DL (8.5-10.1); CARBON DIOXIDE LEVEL 27 MMOL/L (20-31); CHLORIDE LEVEL 107 MMOL/L (98-107); CHOLESTEROL LEVEL 177 MG/DL (<200); CHOLESTEROL RISK RATIO 3.95 (<5); CREATININE FOR GFR 1.03 MG/DL (0.70-1.30); GLOMERULAR FILTRATION RATE > 60.0 (>56); GLUCOSE, FASTING 91 MG/DL (60-100); HDL CHOLESTEROL 44.7 MG/DL (>40); LDL CHOLESTEROL 91.1 MG/DL (<100); NON-HDL-C 132 MG/DL; POTASSIUM SERUM 5.3 MMOL/L (3.5-5.1); SODIUM LEVEL 140 MMOL/L (136-145); TOTAL PROTEIN 7.1 G/DL (5.7-8.2); TRIGLYCERIDES LEVEL 206 MG/DL (<150)
[2022-09-09 12:51] LABS: FREE T4 1.36 NG/DL (0.89-1.76)
[2022-09-09 12:52] LABS: THYROID STIMULATING HORMONE 4.313 uIU/ML (0.55-4.78)
[2022-09-09 12:53] LABS: TESTOSTERONE 432 NG/DL (241-827)
[2022-09-09 12:58] LABS: HEMOGLOBIN A1c 5.8 % (4.0-6.0)
== END ==
LOC: M LAB 10:47
PROVIDERS: ATTEND Family Medicine
DX: E03.9 Hypothyroidism, unspecified (principal); E74.9 Disorder of carbohydrate metabolism, unspecified; E29.1 Testicular hypofunction

== ENCOUNTER → 2022-12-10 | Outpatient (CLI) | payer OTHER ==
[~2022-12-10] MED LIST changes: +CLAR10CA3 PO
== END ==
LOC: M LABSMTC 07:34
PROVIDERS: ATTEND Anesthesiology
DX: Z11.59 Encounter for screening for other viral diseases (principal)

== ENCOUNTER 2022-12-15 07:29 | Day surgery (SDC) | payer OTHER ==
[~2022-12-15] VITALS: Ht 188 cm; Wt 133.8 kg
[~2022-12-15 07:29] MED LIST changes: +LIDOCAINE 2% 100MG/5ML SDV (FOR ANES.) As Ordered ONE; +NS 1,000 ML IV ONE; +propofoL 200 MG/20 ML VIAL As Ordered ONE
[2022-12-15 09:17] VITALS: BP 152/87
[2022-12-15] MEDS ORDERED: propofoL 200 MG/20 ML VIAL As Ordered ONE (09:42)
== END 2022-12-15 09:30 | disposition home or self-care (01) ==
LOC: M OPP 07:29
PROVIDERS: ATTEND Surgery
DX: Z12.11 Encounter for screening for malignant neoplasm of colon (principal); D12.3 Benign neoplasm of transverse colon; D12.2 Benign neoplasm of ascending colon; D12.5 Benign neoplasm of sigmoid colon; K57.30 Diverticulosis of large intestine without perforation or abscess without bleeding

== ENCOUNTER → 2023-04-15 | Outpatient (CLI) | payer OTHER ==
[~2023-04-15] MED LIST changes: -LIDOCAINE 2% 100MG/5ML SDV (FOR ANES.) As Ordered ONE; -NS 1,000 ML IV ONE; -propofoL 200 MG/20 ML VIAL As Ordered ONE
[2023-04-15 10:50] LABS: HEMATOCRIT 47.1 % (42.0-52.0); HEMOGLOBIN 15.3 g/dl (13.5-17.5); MEAN CORPUSCULAR HEMOGLOBIN 27.9 pg (27.0-33.0); MEAN CORPUSCULAR HGB CONC 32.5 g/dl (32.0-36.5); MEAN CORPUSCULAR VOLUME 85.8 fl (80.0-96.0); PLATELET COUNT, AUTOMATED 153 10^3/uL (150-450); RED BLOOD COUNT 5.49 10^6/uL (4.30-6.10); WHITE BLOOD COUNT 5.7 10^3/uL (4.0-10.0)
[2023-04-15 11:17] LABS: HEMOGLOBIN A1c 5.9 % (4.0-6.0)
[2023-04-15 11:28] LABS: FREE T4 1.28 NG/DL (0.89-1.76)
[2023-04-15 11:29] LABS: TESTOSTERONE 388 NG/DL (241-827)
[2023-04-15 11:31] LABS: ALKALINE PHOSPHATASE 69 U/L (46-116); ALT/SGPT 37 U/L (7.0-40); AST/SGOT 15 U/L (<34); BILIRUBIN,TOTAL 0.6 MG/DL (0.3-1.2); BLOOD UREA NITROGEN 14 MG/DL (9-23); CARBON DIOXIDE LEVEL 25 MMOL/L (20-31); CHLORIDE LEVEL 107 MMOL/L (98-107); CREATININE FOR GFR 1.03 MG/DL (0.70-1.30); GLOMERULAR FILTRATION RATE > 60.0 (>56); GLUCOSE, FASTING 121 MG/DL (60-100); POTASSIUM SERUM 4.6 MMOL/L (3.5-5.1); SODIUM LEVEL 140 MMOL/L (136-145)
== END ==
LOC: M PLALAB 07:35
PROVIDERS: ATTEND Family Medicine
DX: I10 Essential (primary) hypertension (principal)

== ENCOUNTER → 2023-12-09 | Outpatient (CLI) | payer OTHER ==
[2023-12-09 11:15] LABS: ALBUMIN 3.8 G/DL (3.2-5.2); ALKALINE PHOSPHATASE 75 U/L (46-116); ALT/SGPT 34 U/L (7.0-40); AST/SGOT 14 U/L (<34); BILIRUBIN,TOTAL 0.4 MG/DL (0.3-1.2); BLOOD UREA NITROGEN 12 MG/DL (9-23); CALCIUM LEVEL 9.1 MG/DL (8.5-10.1); CARBON DIOXIDE LEVEL 29 MMOL/L (20-31); CHLORIDE LEVEL 108 MMOL/L (98-107); CHOLESTEROL LEVEL 154 MG/DL (<200); CHOLESTEROL RISK RATIO 3.94 (<5); CREATININE FOR GFR 0.97 MG/DL (0.70-1.30); FREE T4 1.26 NG/DL (0.89-1.76); GLOMERULAR FILTRATION RATE > 60.0 (>56); GLUCOSE, FASTING 122 MG/DL (60-100); LDL CHOLESTEROL 81.2 MG/DL (<100); POTASSIUM SERUM 4.9 MMOL/L (3.5-5.1); PSA SCREENING 0.68 NG/ML (< 4.00); SODIUM LEVEL 140 MMOL/L (136-145); TESTOSTERONE 409 NG/DL (241-827); THYROID STIMULATING HORMONE 1.879 uIU/ML (0.55-4.78); TOTAL PROTEIN 6.8 G/DL (5.7-8.2); TRIGLYCERIDES LEVEL 169 MG/DL (<150)
[2023-12-09 11:34] LABS: HEMOGLOBIN A1c 6.3 % (4.0-6.0)
== END ==
LOC: M PLALAB 07:18
PROVIDERS: ATTEND Physician Assistant
DX: I10 Essential (primary) hypertension (principal); E29.1 Testicular hypofunction; E74.9 Disorder of carbohydrate metabolism, unspecified; E03.9 Hypothyroidism, unspecified; Z12.5 Encounter for screening for malignant neoplasm of prostate

== ENCOUNTER → 2024-05-26 | Outpatient (CLI) | payer OTHER ==
[2024-05-26 09:41] LABS: HEMOGLOBIN A1c 6.1 % (4.0-6.0)
[2024-05-26 09:48] LABS: ALKALINE PHOSPHATASE 76 U/L (46-116); ALT/SGPT 32 U/L (7.0-40); AST/SGOT 12 U/L (<34); BILIRUBIN,TOTAL 0.6 MG/DL (0.3-1.2); BLOOD UREA NITROGEN 16 MG/DL (9-23); CALCIUM LEVEL 8.8 MG/DL (8.5-10.1); CARBON DIOXIDE LEVEL 26 MMOL/L (20-31); CHLORIDE LEVEL 106 MMOL/L (98-107); CHOLESTEROL LEVEL 150 MG/DL (<200); CHOLESTEROL RISK RATIO 3.92 (<5); CREATININE FOR GFR 1.14 MG/DL (0.70-1.30); GLOMERULAR FILTRATION RATE > 60.0 (>56); GLUCOSE, FASTING 114 MG/DL (60-100); HDL CHOLESTEROL 38.2 MG/DL (>40); NON-HDL-C 111.8 MG/DL; POTASSIUM SERUM 4.6 MMOL/L (3.5-5.1); SODIUM LEVEL 137 MMOL/L (136-145); TRIGLYCERIDES LEVEL 124 MG/DL (<150)
[2024-05-26 09:50] LABS: FREE T4 1.42 NG/DL (0.89-1.76); THYROID STIMULATING HORMONE 2.758 uIU/ML (0.55-4.78)
== END ==
LOC: M LAB 08:15
PROVIDERS: ATTEND Family Medicine
DX: E74.9 Disorder of carbohydrate metabolism, unspecified (principal); E03.9 Hypothyroidism, unspecified; E78.5 Hyperlipidemia, unspecified

== ENCOUNTER → 2024-11-24 | Outpatient (CLI) | payer OTHER ==
[2024-11-24 09:06] LABS: HEMATOCRIT 47.8 % (42.0-52.0); HEMOGLOBIN 15.7 g/dl (13.5-17.5); MEAN CORPUSCULAR HEMOGLOBIN 28.6 pg (27.0-33.0); MEAN CORPUSCULAR HGB CONC 32.8 g/dl (32.0-36.5); MEAN CORPUSCULAR VOLUME 87.1 fl (80.0-96.0); PLATELET COUNT, AUTOMATED 178 10^3/uL (150-450); RED BLOOD COUNT 5.49 10^6/uL (4.30-6.10); WHITE BLOOD COUNT 5.8 10^3/uL (4.0-10.0)
[2024-11-24 09:32] LABS: ALBUMIN 4.1 G/DL (3.2-5.2); ALKALINE PHOSPHATASE 90 U/L (40-129); ALT/SGPT 32 U/L (7.0-40); AST/SGOT 14 U/L (<34); BILIRUBIN,TOTAL 0.3 MG/DL (0.3-1.2); BLOOD UREA NITROGEN 16 MG/DL (9-23); CARBON DIOXIDE LEVEL 27 MMOL/L (20-31); CHLORIDE LEVEL 108 MMOL/L (98-107); CHOLESTEROL LEVEL 153 MG/DL (<200); CHOLESTEROL RISK RATIO 3.85 (<5); CREATININE FOR GFR 1.03 MG/DL (0.70-1.30); GLOMERULAR FILTRATION RATE > 60.0 (>56); GLUCOSE, FASTING 118 MG/DL (60-100); HDL CHOLESTEROL 39.7 MG/DL (>40); LDL CHOLESTEROL 87.7 MG/DL (<100); NON-HDL-C 113.3 MG/DL; POTASSIUM SERUM 5.2 MMOL/L (3.5-5.1); PSA SCREENING 0.75 NG/ML (< 4.00); SODIUM LEVEL 143 MMOL/L (136-145); TOTAL PROTEIN 7.3 G/DL (5.7-8.2); TRIGLYCERIDES LEVEL 128 MG/DL (<150)
[2024-11-24 09:35] LABS: FREE T4 1.55 NG/DL (0.89-1.76)
[2024-11-24 09:36] LABS: TESTOSTERONE 360 NG/DL (241-827); THYROID STIMULATING HORMONE 1.244 uIU/ML (0.55-4.78)
[2024-11-24 09:44] LABS: HEMOGLOBIN A1c 5.9 % (4.0-6.0)
== END ==
LOC: M LAB 08:11
PROVIDERS: ATTEND Family Medicine
DX: E03.9 Hypothyroidism, unspecified (principal)

== ENCOUNTER 2024-12-18 09:49 | Emergency (ER) | payer OTHER ==
[~2024-12-18] VITALS: Ht 188 cm; Wt 135.4 kg
[2024-12-18 10:38] LABS: BASO % 0.5 % (0.0-1.0); EOS # 0.2 10^3/uL (0.0-0.5); EOS % 2.4 % (0.0-3.0); HEMATOCRIT 46.1 % (42.0-52.0); HEMOGLOBIN 15.4 g/dl (13.5-17.5); LYMPH # 1.6 10^3/uL (1.5-5.0); LYMPH % 24.6 % (24.0-44.0); MEAN CORPUSCULAR HEMOGLOBIN 28.4 pg (27.0-33.0); MEAN CORPUSCULAR HGB CONC 33.4 g/dl (32.0-36.5); MEAN CORPUSCULAR VOLUME 85.1 fl (80.0-96.0); MONO # 0.5 10^3/uL (0.0-0.8); MONO % 8.5 % (2.0-8.0); NEUTROPHILS % 63.5 % (36.0-66.0); PLATELET COUNT, AUTOMATED 153 10^3/uL (150-450); RED BLOOD COUNT 5.42 10^6/uL (4.30-6.10); WHITE BLOOD COUNT 6.4 10^3/uL (4.0-10.0)
[2024-12-18 10:47] LABS: INR 1.04; PROTHROMBIN TIME 13.9 SECONDS (12.5-14.5)
[2024-12-18 10:58] LABS: LIPASE 81 U/L (12-53)
[2024-12-18 11:00] LABS: ALBUMIN 4.3 G/DL (3.2-5.2); ALKALINE PHOSPHATASE 66 U/L (40-129); ALT/SGPT 38 U/L (7.0-40); AST/SGOT 17 U/L (<34); BILIRUBIN,DIRECT 0.1 MG/DL (<0.4); BILIRUBIN,TOTAL 0.5 MG/DL (0.3-1.2); BLOOD UREA NITROGEN 16 MG/DL (9-23); CARBON DIOXIDE LEVEL 22 MMOL/L (20-31); CHLORIDE LEVEL 107 MMOL/L (98-107); CK-MB VALUE MASS 1.3 NG/ML (<3.6); CREATININE FOR GFR 0.84 MG/DL (0.70-1.30); GLOMERULAR FILTRATION RATE > 60.0 (>56); GLUCOSE, FASTING 112 MG/DL (60-100); POTASSIUM SERUM 4.6 MMOL/L (3.5-5.1); SODIUM LEVEL 139 MMOL/L (136-145); TOTAL PROTEIN 7.2 G/DL (5.7-8.2)
[2024-12-18 11:03] LABS: CPK CREATINE PHOSPHOKINASE 184 U/L (46-171)
[2024-12-18 11:48] LABS: MB/CK RELATIVE INDEX 1.04 (< OR =4)
[2024-12-18] MEDS ORDERED: ISOVUE-370 76% 100ML VIAL As Ordered ONE (12:59)
[2024-12-18 14:12] LABS: CK-MB VALUE MASS 1.7 NG/ML (<3.6)
[2024-12-18 14:14] LABS: MB/CK RELATIVE INDEX 1.06 (< OR =4)
[2024-12-18] MEDS ORDERED: IBUP-1022 PO (15:49)
[2024-12-18] MEDS ORDERED: COLC0.6T47 PO (15:49)
[2024-12-18 16:18] LABS: C REACTIVE PROTEIN QUANTITATIV < 0.50 MG/DL (<1.0)
[2024-12-18 16:21] VITALS: BP 134/78; TEMP 96.9; O2SAT 96
[2024-12-18] MEDS: IBUPROFEN 600MG TAB PO ONE (16:29)
[2024-12-18] MEDS: COLCHICINE 0.6 MG TABLET PO ONE (16:29)
== END 2024-12-18 16:37 | disposition home or self-care (01) ==
LOC: EDBD 09:49 → M ED 09:49
DX: I30.0 Acute nonspecific idiopathic pericarditis (principal); G47.33 Obstructive sleep apnea (adult) (pediatric); I10 Essential (primary) hypertension; E03.9 Hypothyroidism, unspecified; Z86.718 Personal history of other venous thrombosis and embolism; Z88.8 Allergy status to other drugs, medicaments and biological substances; Z79.1 Long term (current) use of non-steroidal anti-inflammatories (NSAID); Z79.899 Other long term (current) drug therapy
CPT/HCPCS: 36415; 71045; 71275; 80048; 80076; 82550; 82553; 83690; 84484; 85025; 85610; 86140; 93005; 93041; 99285; Q9967

== ENCOUNTER → 2024-12-20 | Outpatient (REF) | payer OTHER ==
[~2024-12-20] MED LIST changes: +COLC0.6T47 PO; +IBUP-1022 PO
[2024-12-20 17:27] LABS: HEMATOCRIT 47.2 % (42.0-52.0); HEMOGLOBIN 15.5 g/dl (13.5-17.5); MEAN CORPUSCULAR HGB CONC 32.8 g/dl (32.0-36.5); MEAN CORPUSCULAR VOLUME 88.4 fl (80.0-96.0); PLATELET COUNT, AUTOMATED 157 10^3/uL (150-450); RED BLOOD COUNT 5.34 10^6/uL (4.30-6.10); WHITE BLOOD COUNT 6.5 10^3/uL (4.0-10.0)
[2024-12-20 17:34] LABS: C REACTIVE PROTEIN QUANTITATIV < 0.50 MG/DL (<1.0)
[2024-12-20 17:36] LABS: ALKALINE PHOSPHATASE 86 U/L (40-129); ALT/SGPT 41 U/L (7.0-40); AST/SGOT 16 U/L (<34); BILIRUBIN,TOTAL 0.3 MG/DL (0.3-1.2); BLOOD UREA NITROGEN 14 MG/DL (9-23); CALCIUM LEVEL 9.2 MG/DL (8.5-10.1); CARBON DIOXIDE LEVEL 28 MMOL/L (20-31); CHLORIDE LEVEL 107 MMOL/L (98-107); CREATININE FOR GFR 0.99 MG/DL (0.70-1.30); GLOMERULAR FILTRATION RATE > 90.0 (>56); GLUCOSE, FASTING 102 MG/DL (60-100); SODIUM LEVEL 143 MMOL/L (136-145); TOTAL PROTEIN 7.2 G/DL (5.7-8.2)
== END ==
LOC: M SFHCADAM 11:03
PROVIDERS: ATTEND Family Medicine
DX: R07.89 Other chest pain (principal)

== ENCOUNTER → 2025-05-18 | Outpatient (CLI) | payer OTHER ==
[~2025-05-18] MED LIST changes: +AMLO1TAB25 PO; +BUPR200T45 PO; -IBUP-1022 PO; +IBUP600T42 PO; +INDO50CA91 PO; +LISI20TA35 PO; +TADA20TA PO; +TADA5TAB2 PO; +THERTAB52 PO
[2025-05-18 09:32] LABS: PLATELET COUNT, AUTOMATED 170 10^3/uL (150-450)
[2025-05-18 09:58] LABS: ALT/SGPT 33.0 U/L (7.0-40); AST/SGOT 17.0 U/L (<34); CALCIUM LEVEL 9.2 MG/DL (8.5-10.1); CARBON DIOXIDE LEVEL 27.0 MMOL/L (20-31); CHLORIDE LEVEL 105.0 MMOL/L (98-107); CREATININE FOR GFR 1.08 MG/DL (0.70-1.30); GLOMERULAR FILTRATION RATE 81.0 (>56); POTASSIUM SERUM 5.0 MMOL/L (3.5-5.1); SODIUM LEVEL 141.0 MMOL/L (136-145)
== END ==
LOC: M LAB 08:14
PROVIDERS: ATTEND Internal Medicine Cardiovascular Disease
DX: I10 Essential (primary) hypertension (principal)

== ENCOUNTER 2025-05-22 06:14 | Day surgery (SDC) | payer OTHER ==
[~2025-05-22] VITALS: Ht 188 cm; Wt 138.3 kg
[~2025-05-22 06:14] MED LIST changes: -ANDR1.62 TOP; -COLC0.6T47 PO; +COLC0.6T53 PO; +TEST75GE10 TOP
[2025-05-22] MEDS ORDERED: LR 1,000 ML IV SCH (06:30)
[2025-05-22] MEDS: CelecoXIB 400 MG CAP PO ONE (06:48)
[2025-05-22] MEDS ORDERED: INDOCYANINE GREEN 25 MG VIAL As Ordered ONE (07:11)
[2025-05-22] MEDS ORDERED: SUGAMMADEX SODIUM 500 MG/5 ML VIAL As Ordered ONE (07:12)
[2025-05-22] MEDS ORDERED: ROCURONIUM BROMIDE 50MG/5ML VIAL As Ordered ONE (07:12)
[2025-05-22] MEDS ORDERED: LIDOCAINE 2% 100 MG/5 ML SDV (FOR ANES.) As Ordered ONE (07:12)
[2025-05-22] MEDS ORDERED: MIDAZOLAM INJ 2 MG/2 ML VIAL As Ordered ONE (07:12)
[2025-05-22] MEDS ORDERED: ACETAMINOPHEN 1000MG/100ML IV BAG As Ordered ONE (07:13)
[2025-05-22] MEDS ORDERED: ONDANSETRON 4MG 2ML VIAL As Ordered ONE (07:13)
[2025-05-22] MEDS ORDERED: dexAMETHasone 4 MG/ML 1 ML VIAL As Ordered ONE (07:13)
[2025-05-22] MEDS: ceFAZolin SOD 3 GM in DEXTROSE 5% (D5W) MINI-BAG PLU 1... IV ONE (07:42)
[2025-05-22] MEDS: INDOCYANINE GREEN 25 MG VIAL IV ONE (07:42)
[2025-05-22] MEDS: HEPARIN SOD 5000 UNITS/ML 1 ML VIAL/SYRINGE As Ordered ONE (07:50)
[2025-05-22] MEDS ORDERED: KETOROLAC 30 MG/ML 1 ML VIAL As Ordered ONE (08:21)
[2025-05-22] MEDS: LIDOCAINE 1% SDV 30 ML VIAL As Ordered ONE (09:33)
[2025-05-22] MEDS ORDERED: HYDROmorphone HCL 2 MG/ML 1 ML VIAL As Ordered ONE (09:35)
[2025-05-22] MEDS ORDERED: MORPHINE 2 MG/ML 1 ML VIAL IV PRN (09:50)
[2025-05-22] MEDS: ONDANSETRON 4MG 2ML VIAL IV PRN (10:11)
[2025-05-22 12:10] VITALS: BP 101/57; TEMP 97; O2SAT 99
== END 2025-05-22 12:20 | disposition home or self-care (01) ==
LOC: M SDC 06:14
PROVIDERS: ATTEND Surgery
DX: K81.1 Chronic cholecystitis (principal); I10 Essential (primary) hypertension; E03.9 Hypothyroidism, unspecified; G47.30 Sleep apnea, unspecified; Z79.899 Other long term (current) drug therapy; Z79.890 Hormone replacement therapy; F41.9 Anxiety disorder, unspecified; F32.A Depression, unspecified; F42.9 Obsessive-compulsive disorder, unspecified; Z86.718 Personal history of other venous thrombosis and embolism; Z88.8 Allergy status to other drugs, medicaments and biological substances; Z87.891 Personal history of nicotine dependence
CPT/HCPCS: 47562; 88304; J0131; J0665; J0688; J1100; J1171; J1885; J2250; J2405; J2765; J3010; Q9968; S2900

== ENCOUNTER → 2025-08-24 | Outpatient (CLI) | payer OTHER ==
[2025-08-24 09:59] LABS: PLATELET COUNT, AUTOMATED 161 10^3/uL (150-450)
[2025-08-24 10:35] LABS: CALCIUM LEVEL 8.9 MG/DL (8.5-10.1); CARBON DIOXIDE LEVEL 26 MMOL/L (20-31); CHLORIDE LEVEL 106 MMOL/L (98-107); CREATININE FOR GFR 0.93 MG/DL (0.70-1.30); GLOMERULAR FILTRATION RATE > 90.0 (>56); POTASSIUM SERUM 4.4 MMOL/L (3.5-5.1); SODIUM LEVEL 140 MMOL/L (136-145)
[2025-08-24 10:37] LABS: TESTOSTERONE 383 NG/DL (241-827)
== END ==
LOC: M LAB 08:28
PROVIDERS: ATTEND Family Medicine
DX: E29.1 Testicular hypofunction (principal)